=== PATIENT | male | born 1960 | race Caucasian/White ===

== ENCOUNTER → 2018-03-19 | Outpatient (REF) | LOC: M SMT 10:38 | DX: Z02.71 Encounter for disability determination (principal) ==

== ENCOUNTER → 2025-03-16 | Outpatient (REF) | payer MEDICARE, OTHER ==
[~2025-03-16] MED LIST: ABIL10TA OR; ACTO30TA OR; ASPI81TA45 OR; ATARAX OR; LEXA1TAB2 OR; METFPOW4 XX; PROZ20CA OR; TRAZ100T OR; ZOCO5TAB OR
[2025-03-16 17:40] LABS: APPEARANCE, URINE CLEAR (CLEAR); BACTERIA, URINE AUTO NEGATIVE (NEGATIVE); BILIRUBIN, URINE AUTO NEGATIVE (NEGATIVE); BLOOD, URINE BLOOD NEGATIVE (NEGATIVE); GLUCOSE, URINE (UA) AUTO 3+ mg/dL (NEGATIVE); KETONE, URINE AUTO NEGATIVE (NEGATIVE); LEUKOCYTE ESTERASE, URINE AUTO NEGATIVE (NEGATIVE); MUCUS, URINE SMALL (NEGATIVE); NITRITE, URINE AUTO NEGATIVE (NEGATIVE); PROTEIN, URINE AUTO NEGATIVE (NEGATIVE); RBC, URINE AUTO 0 /HPF (0-3); SPECIFIC GRAVITY URINE AUTO 1.024 (1.002-1.035); SQUAMOUS EPITHELIAL CELL UR AU 0 /HPF (0-6); UROBILINOGEN, URINE AUTO 0.2 mg/dL (0.0-2.0); WBC, URINE AUTO 0 /HPF (0-3)
== END ==
LOC: M SMT 16:50
PROVIDERS: ATTEND Nurse Practitioner Family
DX: R39.9 Unspecified symptoms and signs involving the genitourinary system (principal)

== ENCOUNTER → 2025-04-04 | Outpatient (CLI) | payer MEDICARE | LOC: M RAD 12:06 | PROVIDERS: ATTEND Nurse Practitioner Family | DX: I86.1 Scrotal varices (principal); N50.9 Disorder of male genital organs, unspecified ==